=== PATIENT | female | born 1990 | race Caucasian/White ===

== ENCOUNTER 2017-04-08 19:54 | Emergency (ER) | payer OTHER ==
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
--- NOTE | 2017-04-08 20:16 | ED NURSING NOTES ---
Clinical Report - Nurses [facility] [address] [place] [address] 04/08/2017 19:54 Patient: DERIC CABEZAS TRIAGE Triage time 20:00 Apr 08 2017. Acuity: LEVEL 3. Chief Complaint: SINUS PAIN. Alert. No acute distress. CANDICE COMA SCORE: Candice Coma Scale: 15- eyes open spontaneously (4); best verbal response- oriented x 4 (5); best motor response- obeys commands (6). --20:04 Ashlyn Calle R.N. 19:59 04/08/17. BP: 150/72. HR: 69. RR: 16. O2 saturation: 100%. Temp: 97.9 F. Pain level now: 12/28. --20:04 Ashlyn Calle R.N. Weight: 86.1 kg stated. Height/Length: 64 inches Per Patient. BMI: 32.6. --19:59 Ashlyn Calle R.N. Medications ZyrTEC Allergy Oral. --20:01 Ashlyn Calle R.N. Allergies None. --20:02 Ashlyn Calle R.N. History Arrived by private vehicle. Historian: patient. This is a new problem. (since Saturday night). She has had sinus pain. She has had a headache (only when bending over). ( clear drainage from right nare). 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 PAST MEDICAL HX: Immunizations: up-to-date. Last normal menstrual period was 1 week ago. Denies current . SOCIAL HX: Never smoker. Occasional alcohol use. History of drug use: marijuana. No infectious disease exposure. SELF HARM ASSESSMENT: A self harm assessment was performed. The patient answered "no" to the question "Do you have thoughts of harming or killing yourself?" and "Have you ever tried to hurt yourself before today?". FALL RISK ASSESSMENT: Fall risk assessment completed. No fall risk identified. NUTRITIONAL RISK ASSESSMENT: The nutritional risk assessment revealed no deficiencies. FUNCTIONAL ASSESSMENT: Functional assessment: no impairments noted. LEARNING NEEDS ASSESSMENT: The learning needs assessment revealed no barriers. ABUSE ASSESSMENT: Abuse assessment: The patient was asked "Do you feel safe in your home?". SKIN INTEGRITY ASSESSMENT: Skin integrity risk assessment completed. No skin integrity risk identified. --20:04 Ashlyn Calle R.N. PROBLEMS: Dermagraphia. Chest Wall Pain. Anxiety Reaction. --20:02 Ashlyn Calle R.N. ADDITIONAL SURGERIES: Tubal Ligation. --20:02 Ashlyn Calle R.N. Interventions ID band on patient. To room. --20:04 Ashlyn Calle R.N. PHYSICAL ASSESSMENT Ambulatory to room. GENERAL / NEURO / PSYCH: Alert. Appears in no acute distress. Pupillary exam: Pupils are equal, round, and reactive to light. HEENT: No facial asymmetry noted. ( bilateral black eyes). Right ear within normal limits. Left ear within normal limits. Nasal injury: tenderness and ecchymosis. RESPIRATORY: Respirations not labored. CVS: Capillary refill less than 2 seconds. SKIN: Skin is warm and dry. --20:07 Ashlyn Calle R.N. NURSING PROGRESS NOTES Head of bed elevated. Patient identifiers checked. Call light placed in reach. Bed placed in lowest position. Brakes of bed on. --20:07 Ashlyn Calle R.N. ( icepack provided). --20:11 Ashlyn Calle R.N. DISPOSITION / DISCHARGE Departure time: 20:24. Condition at departure: unchanged and stable. No learning barriers present. Discharge instructions provided and reviewed with the patient. Reviewed medication(s) side effects, precautions, dosing and course information. Prescription(s) given to the patient. Reviewed referral to an ear, nose, and throat specialist (track welder) for followup. Patient verbalized understanding. Written instructions provided in Moldovan. The patient was discharged home and unaccompanied at time of discharge. She left the Emergency Department ambulatory and via private vehicle. Patient driving. --20:27 Marce Royal R.N. 20:25 04/08/17. BP: deferred. HR: deferred. RR: deferred. O2 saturation: deferred. Temp: deferred. Pain level now deferred. --20:27 Marce Royal R.N. Locked/Released at 04/08/2017 20:27 by Marce Royal R.N.
--- NOTE | 2017-04-08 21:06 | ED MED RECONCILIATION SUMMARY ---
Patient: DERIC CABEZAS Medication Reconciliation Report [facility] VisitID: [id number] [address] [place] [address] 27y, F Registration Date/Time: 04/08/2017 Weight: 86.1 kg Height/Length: 64 in. BMI: 32.6 ALLERGIES: None The patient's Home Medications are listed below: THE FOLLOWING MEDICATIONS NEED TO BE RECONCILED: ZyrTEC Allergy Oral The source(s) of the original Home Medication information: Not obtained. The following Medications were given to the patient in the Emergency Department: None. The following Medications were prescribed to the patient: Motrin IB 200 mg (available over the counter): take 4 orally every 8 hours for 5 days, as needed for pain -- Rosa Anderson, PGeraldAGerald-C
--- NOTE | 2017-04-08 21:06 | ED MAR SUMMARY ---
..... Medication Administration Record [facility] [address] [place], [place] [id number] Patient: COOKROXANE Piña Visit ID: [id number] 27y, F Weight: 86.1 kg Height/Length: 64 in BMI: 32.6 ALLERGIES: None
--- NOTE | 2017-04-08 21:06 | ED MAR SUMMARY ---
..... Medication Administration Record [facility] [address] [place], [place] [id number] Patient: COOKROXANE Piña Visit ID: [id number] 27y, F Weight: 86.1 kg Height/Length: 64 in BMI: 32.6 ALLERGIES: None
--- NOTE | 2017-04-08 21:06 | ED DISCHARGE INSTRUCTIONS ---
Patient: DERIC CABEZAS General Instructions [facility] VisitID: [id number] [address] [place] [address] 27y, F Registration Date/Time: 04/08/2017 Single contusion with soft tissue hematoma to the nose. Closed nondisplaced nasal fracture. No septal hematona. INSTRUCTIONS Drink plenty of fluids. (Medical Clinic ). OTC Medications: Motrin IB 200 mg (available over the counter): take 4 orally every 8 hours for 5 days, as needed for pain Follow-up with: Yuriy Dooley MD, ENT, , [address] , [place], [id number] Follow up. Call for the next available appointment. ADDITIONAL INFORMATION Fractured Nose Vs Contusion [No X-Ray] Based on your exam today you have a contusion (swelling and bruise), or possibly a minor fracture of your nose. Either condition may cause pain, swelling and nasal stuffiness. Sometimes, there is also bleeding from the nose. It is common to get bruising around the eyes by the next day. A minor fracture of the nose bone (no parts [id number]) is not serious and is treated the same as a contusion. A contusion to the nose will heal in about one week. A minor fracture will heal in about 3-4 weeks with no additional treatment needed. A nasal fracture that causes a change in shape of the nose, would require straightening of the nasal bones (reduction) by an ENT doctor (nose specialist). If your nose looks crooked after the swelling goes down, then you probably do have a fracture. Treatment of a nasal fracture is usually delayed until the swelling goes down, anyway. So, there is no harm in waiting. In fact, this may give a better result since the doctor can easily see when the nose is back in the right position. Home Care: Apply an ice pack (ice cubes in a plastic bag, wrapped in a towel) over the injured area for 20 minutes every 1-2 hours the first day. Continue with ice packs 3-4 times a day for the next two days, then as needed for the relief of pain and swelling. Notify your doctor if you are taking aspirin or blood thinners (coumadin). These will promote nose bleeding. Your dose may need to be adjusted. You may use acetaminophen (Tylenol) or ibuprofen (Motrin, Advil) to control pain, unless another medicine was prescribed. [NOTE: If you have chronic liver or kidney disease or ever had a stomach ulcer or GI bleeding, talk with your doctor before using these medicines.] Talk to your doctor if you are taking aspirin or blood thinners (coumadin). These will promote nose bleeding. Your dose may need to be adjusted. Avoid alcohol and hot liquids for the next two days. Alcohol or hot liquids in your mouth can dilate blood vessels in your nose and cause bleeding. Avoid blowing your nose for the first two days. Then, do so gently so you don't cause bleeding. Do not play contact sports in the next four weeks unless you can protect your nose from re-injury. Special custom-fitted plastic face masks are available for this purpose. Follow Up with your doctor or as advised. If your nose appears crooked or if you continue to have difficulty breathing through one or both sides of your nose after the swelling goes down, call the ENT doctor (nose specialist) for an appointment. If you have trouble getting an ENT appointment, call your regular doctor or return here. If a fracture is present and the bones are out of place, a reduction should be done between 6-10 days after the injury in adults ; and between 3-7 days after injury in children . After that time, the bones become more difficult to move back into position. Get Prompt Medical Attention if any of the following occur: Bleeding from the nose that is not controlled by pinching the nostrils together for fifteen minutes Increasing facial swelling, pain or redness Fever of 100.4F (38C) or higher, or as directed by your healthcare provider Unable to breathe from both sides of the nose after swelling goes down Sinus pain Repeated vomiting Severe or worsening headache or dizziness Unusual drowsiness, or unable to awaken as usual Confusion or change in behavior or speech Convulsion (seizure) Nasal Contusion You have a contusion (bruising) of the nose. There appears to be no broken bones. A contusion may cause pain, swelling, stuffiness of the nose and sometimes bleeding. Home Care: 1) Apply an ice pack to the nose for 10 minutes every 2 hours during the first 24 hours to reduce pain and swelling. Continue this four times a day for the next two days. 2) You may use acetaminophen (Tylenol) or ibuprofen (Motrin, Advil) to control pain, unless another medicine was prescribed. [ NOTE : If you have chronic liver or kidney disease or ever had a stomach ulcer or GI bleeding, talk with your doctor before using these medicines.] Talk to your doctor if you are taking aspirin or blood thinners (coumadin). These will promote nose bleeding. Your dose may need to be adjusted. 3) Avoid blowing your nose for the first two days. Then, do so gently so you don't cause bleeding. 4) Avoid alcohol and hot liquids for the next two days. Alcohol or hot liquids in your mouth can dilate blood vessels in your nose and cause bleeding. Follow Up with your doctor or as advised by our staff. If your nose appears crooked , when the swelling goes down, contact an ENT doctor (nose specialist) for an appointment within seven days of injury. [NOTE: If X-rays were taken, they will be reviewed by a radiologist. You will be notified of any new findings that may affect your care.] Get Prompt Medical Attention if any of the following occur: Bleeding from the nose that is not controlled by pinching the nostrils together for 15 minutes Increasing facial swelling, pain or redness Fever of 100.4F (38C) Unable to breathe from both sides of the nose after swelling goes down Sinus pain Repeated vomiting Severe or worsening headache or dizziness Unusual drowsiness, or unable to awaken as usual Confusion or change in behavior or speech Convulsion (seizure) Ibuprofen Oral tablet What is this medicine? IBUPROFEN (eye BYOO proe fen) is a non-steroidal anti-inflammatory drug (NSAID). It is used for dental pain, fever, headaches or migraines, osteoarthritis, rheumatoid arthritis, or painful monthly periods. It can also relieve minor aches and pains caused by a cold, flu, or sore throat. How should I use this medicine? Take this medicine by mouth with a glass of water. Follow the directions on the prescription label. Take this medicine with food if your stomach gets upset. Try to not lie down for at least 10 minutes after you take the medicine. Take your medicine at regular intervals. Do not take your medicine more often than directed. A special MedGuide will be given to you by the pharmacist with each prescription and refill. Be sure to read this information carefully each time. Talk to your backer up regarding the use of this medicine in children. Special care may be needed. What side effects may I notice from receiving this medicine? Side effects that you should report to your doctor or health manager long term care as soon as possible: allergic reactions like skin rash, itching or hives, swelling of the face, lips, or tongue black or bloody stools, blood in the urine or in vomit breathing problems changes in vision chest pain general ill feeling or flu-like symptoms nausea or vomiting redness, blistering, peeling or loosening of the skin, including inside the mouth slurred speech or weakness on one side of the body stomach pain unexplained weight gain or swelling unusually weak or tired yellowing of eyes or skin Side effects that usually do not require medical attention (report to your doctor or health manager long term care if they continue or are bothersome): constipation or diarrhea dizziness gas or heartburn stomach upset What may interact with this medicine? Do not take this medicine with any of the following medications: cidofovir ketorolac methotrexate pemetrexed This medicine may also interact with the following medications: alcohol aspirin diuretics lithium other drugs for inflammation like prednisone warfarin What if I miss a dose? If you miss a dose, take it as soon as you can. If it is almost time for your next dose, take only that dose. Do not take double or extra doses. Where should I keep my medicine? Keep out of the reach of children. Store at room temperature between 15 and 30 degrees C (59 and 86 degrees F). Keep container tightly closed. Throw away any unused medicine after the expiration date. What should I tell my health care provider before I take this medicine? They need to know if you have any of these conditions: asthma cigarette smoker drink more than 3 alcohol containing drinks a day heart disease or circulation problems such as heart failure or leg edema (fluid retention) high blood pressure kidney disease liver disease stomach bleeding or ulcers an unusual or allergic reaction to ibuprofen, aspirin, other NSAIDS, other medicines, foods, dyes, or preservatives or trying to get breast-feeding What should I watch for while using this medicine? Tell your doctor or healthcare professional if your symptoms do not start to get better or if they get worse. This medicine does not prevent heart attack or stroke. In fact, this medicine may increase the chance of a heart attack or stroke. The chance may increase with longer use of this medicine and in people who have heart disease. If you take aspirin to prevent heart attack or stroke, talk with your doctor or health manager long term care. Do not take other medicines that contain aspirin, ibuprofen, or naproxen with this medicine. Side effects such as stomach upset, nausea, or ulcers may be more likely to occur. Many medicines available without a prescription should not be taken with this medicine. This medicine can cause ulcers and bleeding in the stomach and intestines at any time during treatment. Ulcers and bleeding can happen without warning symptoms and can cause . To reduce your risk, do not smoke cigarettes or drink alcohol while you are taking this medicine. You may get drowsy or dizzy. Do not drive, use machinery, or do anything that needs mental alertness until you know how this medicine affects you. Do not stand or sit up quickly, especially if you are an older patient. This reduces the risk of dizzy or fainting spells. This medicine can cause you to bleed more easily. Try to avoid damage to your teeth and gums when you brush or floss your teeth. You have been given the following additional information: Fracture, Nose Versus Contus (No X-Ray) Nasal Contusion Ibuprofen Oral tablet (Electronically signed by Rosa Anderson P.A.-C 04/08/2017 21:05)
--- NOTE | 2017-04-08 21:06 | ED DISCHARGE INSTRUCTIONS ---
Patient: DERIC CABEZAS General Instructions [facility] VisitID: [id number] [address] [place] [address] 27y, F Registration Date/Time: 04/08/2017 Single contusion with soft tissue hematoma to the nose. Closed nondisplaced nasal fracture. No septal hematona. INSTRUCTIONS Drink plenty of fluids. (Medical Clinic ). OTC Medications: Motrin IB 200 mg (available over the counter): take 4 orally every 8 hours for 5 days, as needed for pain Follow-up with: Yuriy Dooley MD, ENT, , [address] , , [place], [id number] Follow up. Call for the next available appointment. ADDITIONAL INFORMATION Fractured Nose Vs Contusion [No X-Ray] Based on your exam today you have a contusion (swelling and bruise), or possibly a minor fracture of your nose. Either condition may cause pain, swelling and nasal stuffiness. Sometimes, there is also bleeding from the nose. It is common to get bruising around the eyes by the next day. A minor fracture of the nose bone (no parts [id number]) is not serious and is treated the same as a contusion. A contusion to the nose will heal in about one week. A minor fracture will heal in about 3-4 weeks with no additional treatment needed. A nasal fracture that causes a change in shape of the nose, would require straightening of the nasal bones (reduction) by an ENT doctor (nose specialist). If your nose looks crooked after the swelling goes down, then you probably do have a fracture. Treatment of a nasal fracture is usually delayed until the swelling goes down, anyway. So, there is no harm in waiting. In fact, this may give a better result since the doctor can easily see when the nose is back in the right position. Home Care: Apply an ice pack (ice cubes in a plastic bag, wrapped in a towel) over the injured area for 20 minutes every 1-2 hours the first day. Continue with ice packs 3-4 times a day for the next two days, then as needed for the relief of pain and swelling. Notify your doctor if you are taking aspirin or blood thinners (coumadin). These will promote nose bleeding. Your dose may need to be adjusted. You may use acetaminophen (Tylenol) or ibuprofen (Motrin, Advil) to control pain, unless another medicine was prescribed. [NOTE: If you have chronic liver or kidney disease or ever had a stomach ulcer or GI bleeding, talk with your doctor before using these medicines.] Talk to your doctor if you are taking aspirin or blood thinners (coumadin). These will promote nose bleeding. Your dose may need to be adjusted. Avoid alcohol and hot liquids for the next two days. Alcohol or hot liquids in your mouth can dilate blood vessels in your nose and cause bleeding. Avoid blowing your nose for the first two days. Then, do so gently so you don't cause bleeding. Do not play contact sports in the next four weeks unless you can protect your nose from re-injury. Special custom-fitted plastic face masks are available for this purpose. Follow Up with your doctor or as advised. If your nose appears crooked or if you continue to have difficulty breathing through one or both sides of your nose after the swelling goes down, call the ENT doctor (nose specialist) for an appointment. If you have trouble getting an ENT appointment, call your regular doctor or return here. If a fracture is present and the bones are out of place, a reduction should be done between 6-10 days after the injury in adults ; and between 3-7 days after injury in children . After that time, the bones become more difficult to move back into position. Get Prompt Medical Attention if any of the following occur: Bleeding from the nose that is not controlled by pinching the nostrils together for fifteen minutes Increasing facial swelling, pain or redness Fever of 100.4F (38C) or higher, or as directed by your healthcare provider Unable to breathe from both sides of the nose after swelling goes down Sinus pain Repeated vomiting Severe or worsening headache or dizziness Unusual drowsiness, or unable to awaken as usual Confusion or change in behavior or speech Convulsion (seizure) Nasal Contusion You have a contusion (bruising) of the nose. There appears to be no broken bones. A contusion may cause pain, swelling, stuffiness of the nose and sometimes bleeding. Home Care: 1) Apply an ice pack to the nose for 10 minutes every 2 hours during the first 24 hours to reduce pain and swelling. Continue this four times a day for the next two days. 2) You may use acetaminophen (Tylenol) or ibuprofen (Motrin, Advil) to control pain, unless another medicine was prescribed. [ NOTE : If you have chronic liver or kidney disease or ever had a stomach ulcer or GI bleeding, talk with your doctor before using these medicines.] Talk to your doctor if you are taking aspirin or blood thinners (coumadin). These will promote nose bleeding. Your dose may need to be adjusted. 3) Avoid blowing your nose for the first two days. Then, do so gently so you don't cause bleeding. 4) Avoid alcohol and hot liquids for the next two days. Alcohol or hot liquids in your mouth can dilate blood vessels in your nose and cause bleeding. Follow Up with your doctor or as advised by our staff. If your nose appears crooked , when the swelling goes down, contact an ENT doctor (nose specialist) for an appointment within seven days of injury. [NOTE: If X-rays were taken, they will be reviewed by a radiologist. You will be notified of any new findings that may affect your care.] Get Prompt Medical Attention if any of the following occur: Bleeding from the nose that is not controlled by pinching the nostrils together for 15 minutes Increasing facial swelling, pain or redness Fever of 100.4F (38C) Unable to breathe from both sides of the nose after swelling goes down Sinus pain Repeated vomiting Severe or worsening headache or dizziness Unusual drowsiness, or unable to awaken as usual Confusion or change in behavior or speech Convulsion (seizure) Ibuprofen Oral tablet What is this medicine? IBUPROFEN (eye BYOO proe fen) is a non-steroidal anti-inflammatory drug (NSAID). It is used for dental pain, fever, headaches or migraines, osteoarthritis, rheumatoid arthritis, or painful monthly periods. It can also relieve minor aches and pains caused by a cold, flu, or sore throat. How should I use this medicine? Take this medicine by mouth with a glass of water. Follow the directions on the prescription label. Take this medicine with food if your stomach gets upset. Try to not lie down for at least 10 minutes after you take the medicine. Take your medicine at regular intervals. Do not take your medicine more often than directed. A special MedGuide will be given to you by the pharmacist with each prescription and refill. Be sure to read this information carefully each time. Talk to your computer technology instructor regarding the use of this medicine in children. Special care may be needed. What side effects may I notice from receiving this medicine? Side effects that you should report to your doctor or health geriatric care manager as soon as possible: allergic reactions like skin rash, itching or hives, swelling of the face, lips, or tongue black or bloody stools, blood in the urine or in vomit breathing problems changes in vision chest pain general ill feeling or flu-like symptoms nausea or vomiting redness, blistering, peeling or loosening of the skin, including inside the mouth slurred speech or weakness on one side of the body stomach pain unexplained weight gain or swelling unusually weak or tired yellowing of eyes or skin Side effects that usually do not require medical attention (report to your doctor or health geriatric care manager if they continue or are bothersome): constipation or diarrhea dizziness gas or heartburn stomach upset What may interact with this medicine? Do not take this medicine with any of the following medications: cidofovir ketorolac methotrexate pemetrexed This medicine may also interact with the following medications: alcohol aspirin diuretics lithium other drugs for inflammation like prednisone warfarin What if I miss a dose? If you miss a dose, take it as soon as you can. If it is almost time for your next dose, take only that dose. Do not take double or extra doses. Where should I keep my medicine? Keep out of the reach of children. Store at room temperature between 15 and 30 degrees C (59 and 86 degrees F). Keep container tightly closed. Throw away any unused medicine after the expiration date. What should I tell my health care provider before I take this medicine? They need to know if you have any of these conditions: asthma cigarette smoker drink more than 3 alcohol containing drinks a day heart disease or circulation problems such as heart failure or leg edema (fluid retention) high blood pressure kidney disease liver disease stomach bleeding or ulcers an unusual or allergic reaction to ibuprofen, aspirin, other NSAIDS, other medicines, foods, dyes, or preservatives or trying to get breast-feeding What should I watch for while using this medicine? Tell your doctor or healthcare professional if your symptoms do not start to get better or if they get worse. This medicine does not prevent heart attack or stroke. In fact, this medicine may increase the chance of a heart attack or stroke. The chance may increase with longer use of this medicine and in people who have heart disease. If you take aspirin to prevent heart attack or stroke, talk with your doctor or health geriatric care manager. Do not take other medicines that contain aspirin, ibuprofen, or naproxen with this medicine. Side effects such as stomach upset, nausea, or ulcers may be more likely to occur. Many medicines available without a prescription should not be taken with this medicine. This medicine can cause ulcers and bleeding in the stomach and intestines at any time during treatment. Ulcers and bleeding can happen without warning symptoms and can cause . To reduce your risk, do not smoke cigarettes or drink alcohol while you are taking this medicine. You may get drowsy or dizzy. Do not drive, use machinery, or do anything that needs mental alertness until you know how this medicine affects you. Do not stand or sit up quickly, especially if you are an older patient. This reduces the risk of dizzy or fainting spells. This medicine can cause you to bleed more easily. Try to avoid damage to your teeth and gums when you brush or floss your teeth. You have been given the following additional information: Fracture, Nose Versus Contus (No X-Ray) Nasal Contusion Ibuprofen Oral tablet (Electronically signed by Rosa Anderson P.A.-C 04/08/2017 21:05)
--- NOTE | 2017-04-08 21:06 | ED MED RECONCILIATION SUMMARY ---
Patient: DERIC CABEZAS Medication Reconciliation Report [facility] VisitID: [id number] [address] [place] [address] 27y, F Registration Date/Time: 04/08/2017 Weight: 86.1 kg Height/Length: 64 in. BMI: 32.6 ALLERGIES: None The patient's Home Medications are listed below: THE FOLLOWING MEDICATIONS NEED TO BE RECONCILED: ZyrTEC Allergy Oral The source(s) of the original Home Medication information: Not obtained. The following Medications were given to the patient in the Emergency Department: None. The following Medications were prescribed to the patient: Motrin IB 200 mg (available over the counter): take 4 orally every 8 hours for 5 days, as needed for pain -- Rosa Anderson, PGeraldAGerald-C
== END 2017-04-08 20:24 | disposition home or self-care (01) ==
LOC: ED SRH 19:54
DX: S02.2XXA Fracture of nasal bones, initial encounter for closed fracture (principal); W50.0XXA Accidental hit or strike by another person, initial encounter; Y93.9 Activity, unspecified; Y99.9 Unspecified external cause status; Y92.9 Unspecified place or not applicable